=== PATIENT | female | born 1990 | race Caucasian/White ===

== ENCOUNTER 2017-02-16 15:40 | Emergency (ER) | payer SELFPAY ==
[2017-02-16 15:46] VITALS: BP 128/85; BMI 29.2
--- NOTE | 2017-02-16 16:08 | DR.GENAD ---
HPI - PCP Primary Care Physician: NFD - Complaint/Symptoms Chief Complaint Doctors Comments: LOWER [id number] PAIN Chief Complaint:: LOWER ABD. PAIN THAT STARTED A WHILE AGO. PAIN WORSE NOW FOR ABOUT 2 WEEKS. - Nurses notes reviewed Nurses Notes Review: Yes - Source History Provided: Patient - Mode of Arrival Mode of Arrival: Ambulatory - Timing Onset of Chief Complaint: 02/02/17 Came on: Gradually - Duration Duration: Constant Duration: Days PMH - PMH Past Medical History: No Past Surgical History: Yes Surgical History: Appendectomy - Family History History of Family Medical Conditions: Yes Family Medical History: Hypertension - Social History Does patient currently use any type of tobacco product: Yes Have you used tobacco products in the last 12 months: Yes Type of Tobacco Use: Cigarettes Does any household member use tobacco: No Alcohol Use: None Do you use any recreational Drugs:: No Lives With: Significant Other Lives Where: Home - infectious screening In the last 2 months have you had wt loss of >10#?: NO Have you had fever, night sweats or hemotysis?: No Have you traveled outside the country in the last 6 months?: No Isolation: Standard PE - Vital Signs Vitals: Temperature 97.8 F Pulse Rate 66 Respiratory Rate 20 Blood Pressure 128/85 O2 Sat by Pulse Oximetry 98 ROR - Labs Reviewed Result Diagrams: 02/16/17 16:12 02/16/17 16:12 Laboratory: WBC 10.1 X10^3/uL (3.6-10.0) H 02/16/17 16:12 RBC 5.18 X10^6/uL (3.5-5.4) 02/16/17 16:12 Hgb 14.4 g/dL (12.0-16.0) 02/16/17 16:12 Hct 42.0 % (36.0-47.0) 02/16/17 16:12 MCV 80.9 fL (80.0-100.0) 02/16/17 16:12 MCH 27.8 pg (27.0-34.0) 02/16/17 16:12 MCHC 34.3 g/dL (33.0-35.0) 02/16/17 16:12 RDW 12.5 % (11.6-16.5) 02/16/17 16:12 Plt Count 143 X10^3/uL (150.0-450.0) L 02/16/17 16:12 MPV 10.1 fL (7.4-11.0) 02/16/17 16:12 Neut % 73.8 % (42.0-75.0) 02/16/17 16:12 Lymph % 16.1 % (21.0-51.0) L 02/16/17 16:12 [place] % 6.8 % (0.0-13.0) 02/16/17 16:12 Eos % 2.9 % (0.9-2.9) 02/16/17 16:12 Baso % 0.4 % (0.2-1.0) 02/16/17 16:12 Neut # 7.5 x10^3/uL (2.2-4.8) H 02/16/17 16:12 Lymph # 1.6 X10^3/uL (1.3-2.9) 02/16/17 16:12 [place] # 0.7 x10^3/uL (0.3-0.8) 02/16/17 16:12 Eos # 0.3 x10^3/uL (0.0-0.2) H 02/16/17 16:12 Baso # 0.0 X10^3/uL (0.0-0.1) 02/16/17 16:12 Absolute Nucleated RBC 0.1 /100WBC 02/16/17 16:12 Sodium 139 mmol/L (136-145) 02/16/17 16:12 Corrected Sodium TNP 02/16/17 16:12 Potassium 4.1 mmol/L (3.5-5.1) 02/16/17 16:12 Chloride 103 mmol/L (98-107) 02/16/17 16:12 Carbon Dioxide 25.4 mmol/L (21-32) 02/16/17 16:12 BUN 9 mg/dL (7-18) 02/16/17 16:12 Creatinine 0.76 mg/dL (0.55-1.02) 02/16/17 16:12 Est GFR (MDRD) Af Amer > 60 (>60) 02/16/17 16:12 Est GFR (MDRD) Non-Af > 60 (>60) 02/16/17 16:12 Glucose 91 mg/dL (65-99) 02/16/17 16:12 Calcium 8.8 mg/dL (8.5-10.1) 02/16/17 16:12 Corrected Calcium TNP 02/16/17 16:12 Total Bilirubin 1.10 mg/dL (0.2-1.0) H 02/16/17 16:12 AST 13 Units/L (15-37) L 02/16/17 16:12 ALT 16 Units/L (12-78) 02/16/17 16:12 Alkaline Phosphatase 68 Units/L (46-116) 02/16/17 16:12 Total Protein 7.6 g/dL (6.4-8.2) 02/16/17 16:12 Albumin 3.9 g/dL (3.4-5.0) 02/16/17 16:12 Globulin 3.7 g/dL (2.5-4.5) 02/16/17 16:12 Albumin/Globulin Ratio 1.1 Ratio (1.1-2.1) 02/16/17 16:12 Amylase 41 Units/L (25-115) 02/16/17 16:12 Lipase 80 Units/L (73-393) 02/16/17 16:12 HCG, Qual Negative <10 mIU/mL 02/16/17 16:12 Specimen Type Clean catch urine 02/16/17 16:03 Urine Color Dark yellow (YELLOW) 02/16/17 16:03 Urine Appearance Clear (CLEAR) 02/16/17 16:03 Urine pH 5.0 (5.0 - 8.0) 02/16/17 16:03 Ur Specific [place] 1.025 (1.000-1.030) 02/16/17 16:03 Urine Protein 2+ (NEGATIVE) 02/16/17 16:03 Urine Glucose (UA) Negative (NEGATIVE) 02/16/17 16:03 Urine Ketones 1+ (NEGATIVE) 02/16/17 16:03 Urine Occult Blood Negative (NEGATIVE) 02/16/17 16:03 Urine Nitrite Negative (NEGATIVE) 02/16/17 16:03 Urine Bilirubin Negative (NEGATIVE) 02/16/17 16:03 Urine Urobilinogen 1+ (NORMAL) 02/16/17 16:03 Ur Leukocyte Esterase 1+ (NEGATIVE) 02/16/17 16:03 Urine RBC 0 - 2 /HPF (NEGATIVE) 02/16/17 16:03 Urine WBC 0 - 3 /HPF (NEGATIVE) 02/16/17 16:03 Ur Squamous Epith Cells Few /HPF (NEGATIVE) 02/16/17 16:03 Amorphous Sediment 1+ /HPF (NEGATIVE) 02/16/17 16:03 Urine Bacteria Trace /HPF (NEGATIVE) 02/16/17 16:03 Urine Mucus Moderate /HPF (NEGATIVE) 02/16/17 16:03 Ur Culture Indicated? No/not indicated 02/16/17 16:03 - Discharge Plan Disposition: 01 HOME, SELF-CARE Condition: Stable Prescriptions: Acetaminophen W/ Codeine [Tylenol/Codeine #3 300-30 mg] 1 tab PO Q6H PRN #15 tab PRN Reason: Pain Ketorolac Tromethamine [Toradol Tab] 10 mg PO Q8H PRN #15 tab PRN Reason: Pain - Follow ups/Referrals Follow ups/Referrals: BHUPINDER SCOTT [STAFF PHYSICIAN] - 02/18/17 NFD,None [Primary Care Provider] - 02/18/17 - Instructions Instructions: Ovarian Cyst, [id number], Abdominal Pain, Adult, [id number] Additional Instructions: RETURN TO ED IF WORSE.
[2017-02-16 16:28] LABS: BILIRUBIN,URINE NEGATIVE (NEGATIVE); BLOOD/HEMOGLOBIN,URINE NEGATIVE (NEGATIVE); GLUCOSE, URINE NEGATIVE (NEGATIVE); KETONES,URINE 1+ (NEGATIVE); LEUKOCYTE ESTERASE ,URINE 1+ (NEGATIVE); NITRITES,URINE NEGATIVE (NEGATIVE); PROTEIN,URINE 2+ (NEGATIVE); UROBILINOGEN,URINE 1+ (NORMAL)
[2017-02-16 16:35] LABS: ALANINE AMINOTRANSFERASE 16 Units/L (12-78); ALBUMIN 3.9 g/dL (3.4-5.0); ALKALINE PHOSPHATASE 68 Units/L (46-116); AMYLASE 41 Units/L (25-115); ASPARTATE AMINO TRANSFERASE 13 Units/L (15-37); BLOOD UREA NITROGEN 9 mg/dL (7-18); CALCIUM 8.8 mg/dL (8.5-10.1); CARBON DIOXIDE 25.4 mmol/L (21-32); CHLORIDE 103 mmol/L (98-107); CREATININE 0.76 mg/dL (0.55-1.02); GLUCOSE 91 mg/dL (65-99); LIPASE 80 Units/L (73-393); SODIUM 139 mmol/L (136-145); TOTAL PROTEIN 7.6 g/dL (6.4-8.2); eGFR BLACK RACES > 60 (>60); eGFR NON BLACK RACES > 60 (>60)
[2017-02-16 16:36] LABS: SERUM PREGNANCY TEST, QUAL NEGATIVE <10 mIU/mL
[2017-02-16 16:38] LABS: APPEARANCE,URINE CLEAR (CLEAR); COLOR,URINE DARK YELLOW (YELLOW)
[2017-02-16 16:39] LABS: AMORPHOUS SEDIMENT,UR 1+ /HPF (NEGATIVE); BACTERIA,URINE TRACE /HPF (NEGATIVE); MUCUS,URINE MODERATE /HPF (NEGATIVE); RBC,URINE 0 - 2 /HPF (NEGATIVE); SQUAMOUS EPITHELIAL CELL,UR FEW /HPF (NEGATIVE)
[2017-02-16 16:40] LABS: BASOPHILS % (AUTO) 0.4 % (0.2-1.0); EOSINOPHILS # (AUTO) 0.3 x10^3/uL (0.0-0.2); EOSINOPHILS % (AUTO) 2.9 % (0.9-2.9); HEMOGLOBIN 14.4 g/dL (12.0-16.0); LYMPHOCYTES # (AUTO) 1.6 X10^3/uL (1.3-2.9); LYMPHOCYTES % (AUTO) 16.1 % (21.0-51.0); MEAN CORPUSCULAR HEMOGLOBIN 27.8 pg (27.0-34.0); MEAN CORPUSCULAR HGB CONC 34.3 g/dL (33.0-35.0); MEAN CORPUSCULAR VOLUME 80.9 fL (80.0-100.0); MEAN PLATELET VOLUME 10.1 fL (7.4-11.0); MONOCYTES # (AUTO) 0.7 x10^3/uL (0.3-0.8); MONOCYTES % (AUTO) 6.8 % (0.0-13.0); NEUTROPHILS # (AUTO) 7.5 x10^3/uL (2.2-4.8); NEUTROPHILS % (AUTO) 73.8 % (42.0-75.0); PLATELET COUNT 143 X10^3/uL (150.0-450.0); RED BLOOD COUNT 5.18 X10^6/uL (3.5-5.4); RED CELL DISTRIBUTION WIDTH 12.5 % (11.6-16.5); WHITE BLOOD COUNT 10.1 X10^3/uL (3.6-10.0)
--- NOTE | 2017-02-16 17:09 | CT ---
History: Abdominal pain. Concern for renal stone. Exam: Non-contrast CT examination of the abdomen \T\ pelvis. Technique: Multiple CT images of the abdomen and pelvis were obtained from the lung bases to the pub ic symphysis without the IV administration of radiopaque contrast. Findings: The lung bases are clear. The heart is normal in size without a pericardial effusion. The liver, gal lbladder, adrenal glands, and spleen are unremarkable on these non contrasted images. There is no pn eumoperitoneum or hemoperitoneum seen. There is no bowel obstruction, large hernia defect, or acute mesenteric inflammatory change. There is no evidence for colitis, diverticulitis, or intense RLQ inf lammatory stranding. No loculated intraperitoneal fluid collection is seen. In the right lower pelvi s on image number 62 of series 3 there is a 32 x 28 mm ovarian/adnexal cystic lesion with a small am ount of right lower pelvic fluid also suggested. This patient's pain could be secondary to a leaking ovarian/follicular cyst. This could probably be best evaluated with pelvic sonography, as clinicall y required. Examination of the kidneys demonstrates no obstructing renal stone, hydronephrosis, or h ydroureter. No other renal, bladder, or abdominopelvic abnormalities are seen. No lytic bony lesions or acute fractures are seen. Impression: In the right lower pelvis on image #62 of series 3 there is a 32 x 28 mm ovarian/adnexal cystic lesion with a small amount of right lower pelvic fluid. This patient's pain could be seconda ry to a leaking ovarian/follicular cyst. This abnormality could probably be best evaluated with pelv ic sonography, as clinically required. Reported By:
[2017-02-16] MEDS ORDERED: TORADOL TAB PO ONE ×2 (17:47→17:49)
== END 2017-02-16 17:56 | disposition home or self-care (01) ==
LOC: ER 15:48
DX: R10.84 Generalized abdominal pain (principal); N83.201 Unspecified ovarian cyst, right side
CPT/HCPCS: 36415; 74176; 80053; 81001; 82150; 83690; 84703; 85025; 99282; 99283